=== PATIENT | male | born 1995 | race Caucasian/White ===

== ENCOUNTER 2016-06-12 14:02 | Observation (INO) | payer BC ==
[2016-06-12] MEDS ORDERED: NS 0.9% 1000 ML* 2,000 ML IV ONE (15:21)
[2016-06-12 16:22] LABS: Urine Bilirubin Negative (Negative); Urine Glucose Negative (Negative); Urine Nitrite Negative (Negative)
[2016-06-12 16:46] LABS: Hematocrit 41 % (42-52); Hemoglobin 13.3 g/dl (14.0-18.0); Mean Corpuscular HGB Conc 33 g/dl (31-36); Mean Corpuscular Hemoglobin 29 pg (27-31); Mean Corpuscular Volume 88 fL (80-94); Mean Platelet Volume 9 um3 (7.4-10.4); Red Blood Count 4.65 10^6/ul (4.0-5.4); Red Cell Distribution Width 14 % (10.5-15); White Blood Count 10.1 10^3/ul (3.5-10.8)
[2016-06-12 16:47] LABS: Add Diff/Slide Review? Manual Diff Added; Comments Flag Yes
[2016-06-12 17:01] LABS: Albumin 4.1 g/dL (3.2-5.2); BUN/Creatinine Ratio 11.2 (8-20); C Reactive Protein 103.91 mg/L (< 5.00); Calcium 8.9 mg/dL (8.6-10.3); EGFR African American 126.7 (>60); EGFR Non-African American 98.5 (>60); Globulin 3.4 g/dL (2-4); Total Bilirubin 0.6 mg/dL (0.2-1.0); Total Protein 7.5 g/dL (6.4-8.9)
[2016-06-12 17:10] LABS: Neutrophil % 47 % (38-83); Reactive Lymph % 11 % (0-6)
[2016-06-12 17:22] LABS: Mono Internal Control QC Line Present
[2016-06-12 17:23] LABS: Manual Entry Verification DOM0004
[2016-06-12] MEDS ORDERED: Benzocaine/Menthol LOZ* 1 LOZENGE PO PRN (17:52)
[2016-06-12] MEDS ORDERED: Ketorolac INJ* 30 MG/ML 1 ML VIAL IV PUSH PRN (17:52)
--- NOTE | 2016-06-12 18:29 | ED ---
Conrado Mcclelland Billy, scribed for Carlos Alberto Quezada MD on 06/12/16 at 1654 . Complex/Multi-Sys Presentation - HPI Summary HPI Summary: Patient is a 20 year-old male coming to [facility] for evaluation of abnormal liver labs. He was seen by his PCP in [place] and was diagnosed with mono 1.5 weeks ago. He reports nausea and vomiting several nights ago. He also reports intermittent abdominal pain and decreased PO intake. He states that he has had no bladder/bowel movements in the last few days. He reports sore throat and hoarse voice. - History Of Current Complaint Chief Complaint: EDNauseaVomitDiarrh Time Seen by Provider: 06/12/16 15:20 Hx Obtained From: Patient Onset/Duration: Gradual Onset, Lasting Days, Still Present Timing: Constant Severity Currently: Moderate Severity Initially: Moderate Aggravating Factor(s): nothing Alleviating Factor(s): nothing Associated Signs And Symptoms: Positive: Nausea, Vomiting, Decreased Oral Intake , Other - sore throat, hoarse voice, - Allergies/Home Medications Allergies/Adverse Reactions: Allergies Allergy/AdvReac Type Severity Reaction Status Date / Time Penicillins Allergy Hives Verified 06/11/15 23:00 Sulfa Antibiotics Allergy Hives Verified 06/11/15 23:00 Home Medications: Home Medications NK [No Home Medications Reported] 06/12/16 [History Confirmed 06/12/16] PMH/Surg Hx/FS Hx/Imm Hx Respiratory History: Denies: Hx Asthma Infectious Disease History: No Infectious Disease History: Denies: Traveled Outside the [place] in Last 30 Days - Family History Known Family History: Positive: Cardiac Disease - Social History Alcohol Use: None Substance Use Type: Reports: None Smoking Status (MU): Never Smoked Tobacco Review of Systems Positive: Sore Throat, Other - voice hoarseness Positive: Abdominal Pain, Vomiting, Nausea, Other - decreased PO All Other Systems Reviewed And Are Negative: Yes Physical Exam Triage Information Reviewed: Yes Vital Signs On Initial Exam: Initial Vitals Temp Pulse Resp BP Pulse Ox 99 F 116 16 113/72 97 06/12/16 14:58 06/12/16 14:58 06/12/16 14:58 06/12/16 14:58 06/12/16 14:58 Vital Signs Reviewed: Yes Appearance: Positive: Well-Appearing, No Pain Distress Skin: Positive: Warm, Skin Color Reflects Adequate Perfusion, Dry Head/Face: Positive: Normal Head/Face Inspection Eyes: Positive: EOMI, EN[place] ENT: Positive: Other - Tonsils 3+ touching midline; no palatine swelling; Neck: Positive: Other: - anterior cervical lymph nodes Respiratory/Lung Sounds: Positive: Clear to Auscultation, Breath Sounds Present Cardiovascular: Positive: Tachycardia Abdomen Description: Positive: Nontender, Soft Bowel Sounds: Positive: Present Musculoskeletal: Positive: Normal, Strength/ROM Intact Neurological: Positive: Normal, Sensory/Motor Intact, Alert, Oriented to Person Place, Time Psychiatric: Positive: Affect/Mood Appropriate Diagnostics - Vital Signs Vital Signs Temp Pulse Resp BP Pulse Ox 06/12/16 14:58 99 F 116 16 113/72 97 - Laboratory Lab Results: Lab Results 06/12/16 06/12/16 Range/Units 16:08 16:38 WBC 10.1 (3.5-10.8) 10^3/ul RBC 4.65 (4.0-5.4) 10^6/ul Hgb 13.3 L (14.0-18.0) g/dl Hct 41 L (42-52) % MCV 88 (80-94) fL MCH 29 (27-31) pg MCHC 33 (31-36) g/dl RDW 14 (10.5-15) % Plt Count 166 (150-450) 10^3/ul MPV 9 (7.4-10.4) um3 Absolute Neuts (auto) Pending Absolute Lymphs (auto) Pending Absolute Monos (auto) Pending Absolute Eos (auto) Pending Absolute Basos (auto) Pending Absolute Nucleated RBC Pending Neutrophils % Pending Normal RBC Morphology Pending Urine Color Yellow Urine Appearance Clear Urine pH 6.0 (5-9) Ur Specific [place] 1.016 (1.010-1.030) Urine Protein Negative (Negative) Urine Ketones Negative (Negative) Urine Blood Negative (Negative) Urine Nitrate Negative (Negative) Urine Bilirubin Negative (Negative) Urine Urobilinogen Negative (Negative) Ur Leukocyte Esterase Negative (Negative) Urine Glucose Negative (Negative) Monoscreen Pending Result Diagrams: 06/12/16 16:38 06/12/16 16:38 Lab Statement: Any lab studies that have been ordered have been reviewed, and results considered in the medical decision making process. Complex Multi-Symp Course/Dx Assessment/Plan: ADMIT HOSPITALIST STABLE. - Diagnoses Provider Diagnoses: Dehydration, Mononucleosis - Physician Notifications Discussed Care Of Patient With: Dr. Ramsey (hospitalist) @ [id number]: will see patient in the ED. Discharge - Discharge Plan Condition: Stable Disposition: ADMITTED TO [facility] documentation as recorded by the Conrado arias Billy accurately reflects the service I personally performed and the decisions made by me, Carlos Alberto Quezada MD.
[2016-06-12] MEDS ORDERED: Acetaminophen ADULT LIQ* 650 MG/20.3 ML UDC PO PRN (18:53)
[2016-06-12] MEDS ORDERED: Acetaminophen ADULT LIQ* 650 MG/20.3 ML UDC PO ONE (18:53)
[2016-06-12] MEDS: NS 0.9% 1000 ML* 1,000 ML IV SCH (20:02)
[2016-06-12] MEDS: Chlorhexidine MOUTHWASH 0.12%* 15 ML UDC SWISH SPIT SCH ×2 (20:03→22:10)
[2016-06-13] MEDS: Chlorhexidine MOUTHWASH 0.12%* 15 ML UDC SWISH SPIT SCH ×3 (01:20→09:37)
[2016-06-13 01:36] LABS: Hematocrit 35 % (42-52); Hemoglobin 11.7 g/dl (14.0-18.0); Mean Corpuscular HGB Conc 34 g/dl (31-36); Mean Corpuscular Hemoglobin 30 pg (27-31); Mean Corpuscular Volume 88 fL (80-94); Mean Platelet Volume 9 um3 (7.4-10.4); Red Blood Count 3.95 10^6/ul (4.0-5.4); Red Cell Distribution Width 14 % (10.5-15); White Blood Count 8.3 10^3/ul (3.5-10.8)
[2016-06-13 01:39] LABS: Add Diff/Slide Review? Slide Review Added; Comments Flag Yes
[2016-06-13 01:47] LABS: Albumin 3.4 g/dL (3.2-5.2); BUN/Creatinine Ratio 9.6 (8-20); Calcium 8.3 mg/dL (8.6-10.3); EGFR African American 118.3 (>60); Globulin 2.9 g/dL (2-4); Potassium 3.9 mmol/L (3.5-5.0); Total Bilirubin 0.5 mg/dL (0.2-1.0); Total Protein 6.3 g/dL (6.4-8.9)
[2016-06-13 02:10] LABS: Immature Granulocytes 4 % (0-9); Myelocytes % 1 % (0-1); Neutrophil % 34 % (38-83); RBC Morphology Normal (Normal); Reactive Lymph % 32 % (0-6)
--- NOTE | 2016-06-13 02:21 | HP ---
HISTORY AND PHYSICAL: * DATE OF ADMISSION: 06/12/16 ATTENDING PHYSICIAN: Dr. Nelson (reported dictated by Aristeo Leo NP). PRIMARY CARE PROVIDER: [place] [id number]/CPS #: [id number] [facility]
--- NOTE | 2016-06-13 02:21 | HP ---
ADMISSION HISTORY AND PHYSICAL: DATE OF ADMISSION: 06/12/16 ATTENDING PHYSICIAN: Dr. Nelson * (report dictated by Aristeo Leo, CHAPARRITA). PRIMARY CARE PROVIDER: Dr. Tuan Kay, [facility], [place], [place]. PRIMARY PROVIDER: [facility]. CHIEF COMPLAINT: Sent from [facility] for dehydration and secondary to mono. HISTORY OF PRESENT ILLNESS: Mr. Seay is a 20-year-old male with no significant past medical history who was diagnosed with mono approximately 10 days ago by his primary producer assistant when he was home on break. Mr. Seay reports that he returned to [facility] on Friday night, which was 3 nights ago, and still felt under the weather. He was seen and evaluated at the [facility] on Friday, Friday, and today where he was given IV fluids every day and yesterday was given a dose of IV steroids. Today on evaluation at the [facility], he was noted to be tachycardic with heart rate of 140 and was sent to [facility] for tachycardia and unable to keep up with fluid needs. On evaluation in the emergency department, the patient's labs are fairly unremarkable with noted transaminitis with AST of 115, ALT of 379. As well, he is noted to have C-reactive protein of 103.91. The patient reports his max temperature was 102.7 two days ago. He reports a sore throat with swollen lymph nodes, reports that he was tested twice for strep which were both negative. Reports when he was initially diagnosed he was put on a short course of steroids, which did initially help. Today, on evaluation the patient reports fever and chills. Reports overall he feels "terrible." Reports dizziness with ambulation. Denies shortness of breath, cough, or chest pain. The patient reports sore throat. He reports that he has not had any oral intake, whether it be food or fluids for 24 hours. The patient reports generalized weakness. No diarrhea, abdominal pain, or constipation. Denies ear pain. Hospitalist will meet the patient for dehydration. PAST MEDICAL HISTORY: ADHD. MEDICATIONS: 1. Adderall 10 mg daily. 2. Adderall XR 30 mg? 3. Ibuprofen 400 mg q.4-6 hours p.r.n. ALLERGIES: PENICILLIN and SULFA ANTIBIOTICS. FAMILY HISTORY: Reviewed and noncontributory. SOCIAL HISTORY: Denies tobacco abuse. Occasional alcohol use. Denies recreational drug use. 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 He lives in a dorm. His father is Smith Seay. Lives in [place], [place]. Nidhi and Smith Seay are the healthcare proxies. REVIEW OF SYSTEMS: A 14-point review of systems was performed. All the pertinent positives and negatives are mentioned in the history of present illness. All the remaining systems are negative. PHYSICAL EXAMINATION APPEARANCE: A 20-year-old male lying in the emergency department stretcher bundled in blankets, appearing moderately ill. Alert and oriented x3. VITAL SIGNS: Temperature 99, heart rate 113, respirations 16, O2 sat 99% on room air, blood pressure 122/69. HEENT: Head is normocephalic, atraumatic. Pupils are equal and reactive to light. Dry mucous membranes. Oropharynx appears to have mild erythema. No noted exudate. Unable to visualize tonsils. Noted nasal congestion. NECK: Bilateral cervical lymphadenopathy. Tender to palpation. Good aeration throughout. No accessory muscle use. RESPIRATORY: Lungs are clear to auscultation bilaterally. Good aeration throughout. CARDIAC: S1, S2. Tachycardia noted. No lower extremity edema noted. 2+ DP pulses bilaterally. ABDOMEN: Soft, nondistended. Normal bowel sounds x4. Right upper quadrant tenderness with deep palpation. No guarding, no hepatosplenomegaly is noted. MUSCULOSKELETAL: No clubbing or cyanosis noted. No abnormalities. Full range of motion in all extremities. Strength is 5/5 throughout. SKIN: No rashes, lesions, or open wounds noted. NEUROLOGIC: Cranial nerves II through XII are intact. PSYCH: Alert and oriented x3. Appropriate to situation. LABORATORY DATA AND DIAGNOSTIC STUDIES: Sodium 137, potassium 4.0, chloride 101, carbon dioxide 31, anion gap 5, BUN 11, creatinine 0.98, glucose 85, calcium 8.9, total bilirubin 0.60, AST 115, ALT 379, alkaline phosphatase 91, C- reactive protein 103.91, total protein 7.5, albumin 4.1, lipase 50, INR 1.25. WBC is 10.1, RBC 4.65, Hgb 13.3, HCT 41, MCV 88, MCH 29, MCHC 33, RDW 14, platelet count 166. Urinalysis negative. Price pending. Strep pending. Influenza pending. ASSESSMENT AND PLAN: Mr. Seay is a 20-year-old male with no significant past medical history who was diagnosed with mono approximately 10 days ago who was sent to [facility] for dehydration with tachycardia, unable to keep up on fluid needs. The patient was admitted to hospitalist service. 1. Price. The patient will be admitted on observation status, as even though he does not reflect dehydration on his labs, it is apparent with him being evaluated at the [facility] for 3 days and requiring fluids with noted tachycardia that he will be admitted for IV fluids. Most likely discharge home tomorrow. Symptomatic treatment with pain medication. Obtain blood cultures. 2. Transaminitis secondary to mono. Check LFTs in the a.m. 3. Normocytic anemia. Suspect secondary to hemodilution secondary to IV fluids. 4. DVT prophylaxis. Encourage low risk, encourage ambulation. 5. Code status. Full code. His mother is Nidhi Seay, number is [phone]. 6. Hospital status. Observation. TIME SPENT: Approximately 60 minutes were spent on this admission. This case was discussed with attending physician, Dr. Nelson, who agrees with the plan of care. ARISTEO LEO, CHAPARRITA [id number]/[facility] #: [id number] [place]
[2016-06-13] MEDS: NS 0.9% 1000 ML* 1,000 ML IV SCH (02:44)
--- NOTE | 2016-06-13 11:32 | DCNOTE ---
Subjective Date of Service: 06/13/16 Interval History: patient reports he feels a little better today but still feels "not that great" - biggest c/o is sore throat and nasal congestion. No fevers or chills. has been drinking fluids but continues to have little appetite. no abdominal pain. No N/V/D. Dad at bedside and both the patient and dad are ready for DC. The dad plans on taking him to a hotel room and see if he feels well enough to stay at school or will take him back home. Objective Active Medications: Acetaminophen (Tylenol Adult Liq*) 650 mg PO Q6H PRN PRN Reason: FEVER Last Admin: 06/13/16 01:20 Dose: 650 mg Chlorhexidine Gluconate (Peridex Mouth Wash 0.12%*) 15 ml SWISH SPIT Q4HR KARLI Last Admin: 06/13/16 09:37 Dose: 15 ml Sodium Chloride (Ns 0.9% 1000 Ml*) 1,000 mls @ 150 mls/hr IV PER RATE KARLI Stop: 06/14/16 00:39 Last Admin: 06/13/16 02:44 Dose: 150 mls/hr Ketorolac Tromethamine (Toradol Inj*) 30 mg IV PUSH Q6H PRN PRN Reason: PAIN Last Admin: 06/12/16 19:03 Dose: 30 mg Throat Lozenges (Chloraseptic Betito*) 1 betito PO Q6H PRN PRN Reason: SORE THROAT Vital Signs 06/12/16 06/12/16 06/12/16 19:50 20:00 22:00 Temperature 100.7 F 99.4 F Pulse Rate 109 109 Respiratory 16 18 Rate Blood Pressure 115/50 115/50 (mmHg) O2 Sat by Pulse 98 98 Oximetry 06/12/16 06/12/16 06/13/16 22:05 23:13 00:01 Temperature 97.6 F Pulse Rate 109 Respiratory 18 16 Rate Blood Pressure 117/51 (mmHg) O2 Sat by Pulse 99 Oximetry 06/13/16 06/13/16 06/13/16 01:00 02:40 03:25 Temperature 100.7 F 98.5 F Pulse Rate 109 Respiratory 16 Rate Blood Pressure 128/70 (mmHg) O2 Sat by Pulse 97 Oximetry 06/13/16 06/13/16 06/13/16 06:09 07:16 07:54 Temperature 100.3 F 98.2 F Pulse Rate 111 Respiratory 18 16 Rate Blood Pressure 131/70 (mmHg) O2 Sat by Pulse 97 Oximetry Oxygen Devices in Use Now: None Appearance: 20 yo male A+O x3 appears to have a mild-mod illness. Eyes: No Scleral Icterus, PERRLA Ears/Nose/Mouth/Throat: NL Teeth, Lips, Gums, Clear Oropharnyx, Mucous Membranes Moist Neck: NL Appearance and Movements; NL JVP Respiratory: Symmetrical Chest Expansion and Respiratory Effort, Clear to Auscultation Cardiovascular: NL Sounds; No Murmurs; No JVD, RRR, No Edema Abdominal: NL Sounds; No Tenderness; No Distention Lymphatic: No Cervical Adenopathy, - - b/l Extremities: No Edema, No Clubbing, Cyanosis Skin: No Rash or Ulcers, No Nodules or Sclerosis Neurological: Alert and Oriented x 3, NL Sensation, NL Gait, NL Muscle Strength and Tone Lines/Tubes/Other Access: Clean, Dry and Intact Peripheral IV Nutrition: Taking PO's Result Diagrams: 06/13/16 01:04 06/13/16 01:04 Additional Lab and Data: Lab Results 06/12/16 06/12/16 Range/Units 16:08 16:38 WBC 10.1 (3.5-10.8) 10^3/ul RBC 4.65 (4.0-5.4) 10^6/ul Hgb 13.3 L (14.0-18.0) g/dl Hct 41 L (42-52) % MCV 88 (80-94) fL MCH 29 (27-31) pg MCHC 33 (31-36) g/dl RDW 14 (10.5-15) % Plt Count 166 (150-450) 10^3/ul MPV 9 (7.4-10.4) um3 Absolute Neuts (auto) Pending Absolute Lymphs (auto) Pending Absolute Monos (auto) Pending Absolute Eos (auto) Pending Absolute Basos (auto) Pending Absolute Nucleated RBC Pending Neutrophils % Pending Normal RBC Morphology Pending Urine Color Yellow Urine Appearance Clear Urine pH 6.0 (5-9) Ur Specific [place] 1.016 (1.010-1.030) Urine Protein Negative (Negative) Urine Ketones Negative (Negative) Urine Blood Negative (Negative) Urine Nitrate Negative (Negative) Urine Bilirubin Negative (Negative) Urine Urobilinogen Negative (Negative) Ur Leukocyte Esterase Negative (Negative) Urine Glucose Negative (Negative) Monoscreen Pending Microbiology and Other Data: Microbiology 06/13/16 01:20 Influenza Types A,B Antigen (DENISSE) - Final Nasopharyngeal Specimen received for Influenza A/B Molecular testing 06/13/16 01:20 Group A Streptococcus Rapid Screen - Final Throat Specimen received for Rapid Strep A Molecular testing Assess/Plan/Problems-Billing Assessment: 20 [facility] [facility] with acute pharyngitis secondary to Sp[place] presents to the ED 06/12 sent from [facility] for 3 consecutive visits and not being able to keep up on fluids, noted to be tachycardic. - Patient Problems (1) Pharyngitis due to infectious mononucleosis Comment: -slight improvement today but continues to have significant sore through limiting eating. plan for DC with dad. - +mono, negative Influenza A/B - gargle QID - pain management (2) Transaminitis Comment: - trending down. recheck in 1 week. (3) DVT prophylaxis Comment: encourage ambulation Status and Disposition: OBV. Plan for DC home with dad
[2016-06-13 11:59] VITALS: BP 113/90
--- NOTE | 2016-06-13 20:16 | DS ---
DISCHARGE SUMMARY: DATE OF ADMISSION: 06/12/16 DATE OF DISCHARGE: 06/13/16 ATTENDING PHYSICIAN: Dr. Nelson* (report dictated by Aristeo Leo, CHAPARRITA) PRIMARY CARE PROVIDER: Dr. Tuan Kay, [facility], [place], [place]. PRIMARY CARE PROVIDER: [facility]. PRIMARY DIAGNOSES: 1. Acute pharyngitis secondary to mono. 2. Transaminitis. SECONDARY DIAGNOSIS: Attention deficit hyperactivity disorder. DISCHARGE MEDICATIONS: 1. Adderall 10 mg p.o. daily. On hold until the patient feels better. 2. Adderall XR 30 mg daily. On hold until the patient feels better. 3. Chlorhexidine mouthwash 0.12% 50 mL swish and spit q.4 hours. 4. Ibuprofen 400 mg p.o. q.6 hours p.r.n. 5. Prednisone 20 mg p.o. daily x5 days. 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 The patient was recently diagnosed with mono and had secondary symptoms of acute pharyngitis. Due to the patient's severe sore throat, the patient was not able to keep up on his fluid intake and was seen in the [facility] for the past 3 days; each day he was given IV fluids. Yesterday, the patient was noted to be tachycardic with heart rate in the 140s and temperature of 102 and was sent to [facility] for further evaluation. The patient was admitted to the hospitalist service and monitored on the medical floor. His labs from admission were unimpressive; however, the patient was admitted for dehydration, unable to keep up on his fluid status. In the emergency department, his heart rate was noted to be 116. He has remained hemodynamically stable. He has had no leukocytosis. He did test positive for mono, negative for influenza A and B. He was noted to have CRP of 103.91. He is noted to have elevated liver enzymes on admission, his AST was 115 and an ALT of 379, both are trending down today on recheck. The patient reports he feels slightly better today. His dad is at the bedside. Plan is to discharge the patient in care of his father with plan to stay in a hotel for a couple of days and if the patient still continues to not feel well, the father will take the patient home for a long weekend. The patient currently reports poor appetite, but has been taking fluids more than he had been for the past several days. Worsening signs and symptoms were discussed with the patient, when to return to the emergency department. Plan for symptomatic treatment. Encourage rest and fluids. DISCHARGE PLAN: 1. Discharge home in care of dad. 2. Follow up with [facility] in 2 days. 3. Encourage the patient to gargle every 4 hours with chlorhexidine wash and/ or warm salt water. 4. The patient was instructed no contact sports until cleared by primary care provider or IC provider. 5. Check lab, CBC and CMP in 1 week. CONDITION AT DISCHARGE: Stable. TIME SPENT: Approximately 60 minutes was spent on this discharge. ARISTEO LEO, CHAPARRITA [id number]/CPS #: [id number] [place]
== END 2016-06-13 12:15 | disposition home or self-care (01) ==
LOC: ED 14:02 → MED 17:46 → UNDODISOB 06-13 13:01
PROVIDERS: ADMIT Internal Medicine; ATTEND Internal Medicine
DX: B27.99 Infectious mononucleosis, unspecified with other complication (principal); J02.9 Acute pharyngitis, unspecified; E86.0 Dehydration; R74.0 Nonspecific elevation of levels of transaminase and lactic acid dehydrogenase [LDH]; D64.89 Other specified anemias
CPT/HCPCS: 36415; 80053; 81003; 83690; 85025; 85610; 85730; 86140; 86308; 87040; 87502; 87651; 96360; 99283; A9270-GY; G0378; J1885

== ENCOUNTER 2016-09-17 18:15 | Emergency (ER) | payer BC ==
[2016-09-17] MEDS: NS 0.9% 1000 ML* 2,000 ML IV ONE ×2 (19:09→20:58)
[2016-09-17 19:24] LABS: Hematocrit 39 % (42-52); Hemoglobin 13.3 g/dl (14.0-18.0); Mean Corpuscular HGB Conc 34 g/dl (31-36); Mean Corpuscular Hemoglobin 29 pg (27-31); Mean Corpuscular Volume 85 fL (80-94); Mean Platelet Volume 9 um3 (7.4-10.4); Red Blood Count 4.56 10^6/ul (4.0-5.4); Red Cell Distribution Width 13 % (10.5-15); White Blood Count 18.9 10^3/ul (3.5-10.8)
[2016-09-17 19:31] LABS: Add Diff/Slide Review? Slide Review Added; Comments Flag Yes
[2016-09-17 19:39] LABS: Albumin 4.3 g/dL (3.2-5.2); BUN/Creatinine Ratio 9.8 (8-20); Calcium 8.9 mg/dL (8.6-10.3); EGFR African American 119.7 (>60); EGFR Non-African American 93.1 (>60); Globulin 2.6 g/dL (2-4); Potassium 3.7 mmol/L (3.5-5.0); Total Protein 6.9 g/dL (6.4-8.9)
[2016-09-17] MEDS ORDERED: Dexamethasone IV* 4 MG/ML 1 ML (4 MG) IV SLOW PU ONE (19:50)
[2016-09-17] MEDS ORDERED: Ketorolac INJ* 30 MG/ML 1 ML VIAL IV PUSH ONE (19:51)
[2016-09-17] MEDS ORDERED: Iohexol 300* (CONTRAST) 10 ML SDV IV ONE (19:57)
--- NOTE | 2016-09-17 20:20 | RAD ---
HISTORY: Sore throat, tonsillar swelling COMPARISONS: None TECHNIQUE: Multiple contiguous axial CT scans were obtained of the neck after the administration of nonionic intravenous contrast, with coronal and sagittal multiplanar reformations. FINDINGS: Evaluation limited by suboptimal contrast opacification. Evaluation is also limited by patient swallowing motion artifact. BRAIN AND ORBITS: The visualized brain and orbits are normal. PARANASAL SINUSES: The visualized paranasal sinuses are clear. SALIVARY GLANDS: The parotid glands, submandibular glands, sublingual glands are normal. NASAL CAVITY/NASOPHARYNX: There is prominence of the adenoidal tissue. ORAL CAVITY/OROPHARYNX: The oral cavity is obscured by streak artifact from dental amalgam. There is prominence of the palatine tonsils.. LARYNGEAL APPARATUS/HYPOPHARYNX: Evaluation is limited by patient swallowing motion artifact. The laryngeal apparatus is grossly normal UPPER AIRWAY/UPPER ESOPHAGUS: The visualized upper airway and esophagus are normal. LUNG APICES: The lung apices are clear. THYROID GLAND: The thyroid gland is normal. LYMPH NODES: There are enlarged level 2 lymph nodes bilaterally measuring up to 2 cm in short axis. VASCULATURE: The vasculature is unremarkable. BONES AND SOFT TISSUES: No bone or soft tissue abnormalities are noted. OTHER: None. IMPRESSION: 1. LIMITED STUDY. 2. PROMINENCE OF THE ADENOIDS AND PALATINE TONSILS, WITH UPPER CERVICAL LYMPHADENOPATHY. THERE IS NO LOCULATED THE FLUID COLLECTION TO SUGGEST ABSCESS..
[2016-09-17 20:24] LABS: Mono Internal Control QC Line Present
--- NOTE | 2016-09-17 21:11 | ED ---
Throat Pain/Nasal Congestion - HPI Summary HPI Summary: 21M presents with fever and sore throat since last night. He states this is similar to when he had mono in the past. He was scheduled for tonsillectomy on Friday due to frequent strep infections. He took ibuprofen and Tylenol for his fever. He was seen [facility] and they gave him fluid prior to transfer. He denies any stiff neck. He admits to headache, nasal congestion and sore throat. He states he is still able to swallow and eat. He denies any abdominal pain, n/v/d. He was hospitalized for mono a couple months ago. He states he does not fell dehydrated at this time. he has an occasionally dry cough. He denies nay chest pain or SOB. <Tatiana Mason - Last Filed: 09/18/16 15:36> <Radha Harding - Last Filed: 09/21/16 09:15> - History of Current Complaint Chief Complaint: EDGeneral Time Seen by Provider: 09/17/16 18:50 - Allergies/Home Medications Allergies/Adverse Reactions: Allergies Allergy/AdvReac Type Severity Reaction Status Date / Time Penicillins Allergy Hives Verified 06/11/15 23:00 Sulfa Antibiotics Allergy Hives Verified 06/11/15 23:00 PMH/Surg Hx/FS Hx/Imm Hx Cardiovascular History: Denies: Hx Hypertension Respiratory History: Denies: Hx Asthma Infectious Disease History: No Infectious Disease History: Denies: Traveled Outside the [place] in Last 30 Days - Family History Known Family History: Positive: Cardiac Disease - Social History Alcohol Use: Occasionally Substance Use Type: Reports: None Smoking Status (MU): Never Smoked Tobacco <Tatiana Mason - Last Filed: 09/18/16 15:36> Review of Systems Positive: Fever Positive: Sore Throat, Nasal Discharge Negative: Chest Pain Positive: Cough. Negative: Shortness Of Breath Negative: Abdominal Pain, Vomiting, Diarrhea, Nausea All Other Systems Reviewed And Are Negative: Yes <Tatiana Mason - Last Filed: 09/18/16 15:36> Physical Exam Triage Information Reviewed: Yes Vital Signs On Initial Exam: Initial Vitals Temp Pulse Resp BP Pulse Ox 101.2 F 130 19 156/80 100 09/17/16 18:22 09/17/16 18:22 09/17/16 18:22 09/17/16 18:22 09/17/16 18:22 Vital Signs Reviewed: Yes Appearance: Positive: Ill-Appearing Skin: Positive: Warm, Dry Head/Face: Positive: Normal Head/Face Inspection Eyes: Positive: Normal, Conjunctiva Clear ENT: Positive: Pharyngeal erythema, Tonsillar swelling, Other - uvula midline, tonsils +4, managing secretions well. Negative: Tonsillar exudate, Trismus, Muffled/hoarse voice Neck: Positive: Supple, Nontender, No Lymphadenopathy Respiratory/Lung Sounds: Positive: Clear to Auscultation, Breath Sounds Present Cardiovascular: Positive: Normal, RRR - [place] Coma Scale Coma Scale Total: 15 <Tatiana Mason - Last Filed: 09/18/16 15:36> Vital Signs On Initial Exam: Initial Vitals Temp Pulse Resp BP Pulse Ox 101.2 F 130 19 156/80 100 09/17/16 18:22 09/17/16 18:22 09/17/16 18:22 09/17/16 18:22 09/17/16 18:22 <Radha Harding - Last Filed: 09/21/16 09:15> Diagnostics - Vital Signs Vital Signs Temp Pulse Resp BP Pulse Ox 09/17/16 20:39 100.9 F 122 18 109/60 96 09/17/16 18:40 101.2 F 130 19 156/80 100 09/17/16 18:22 101.2 F 130 19 156/80 100 - Laboratory Lab Results: Lab Results 09/17/16 09/17/16 09/17/16 Range/Units 19:10 19:10 19:10 WBC 18.9 H (3.5-10.8) 10^3/ul RBC 4.56 (4.0-5.4) 10^6/ul Hgb 13.3 L (14.0-18.0) g/dl Hct 39 L (42-52) % MCV 85 (80-94) fL MCH 29 (27-31) pg MCHC 34 (31-36) g/dl RDW 13 (10.5-15) % Plt Count 160 (150-450) 10^3/ul MPV 9 (7.4-10.4) um3 Neut % (Auto) 86.4 H (38-83) % Lymph % (Auto) 4.6 L (25-47) % Johnson % (Auto) 8.9 (1-9) % Eos % (Auto) 0 (0-6) % Baso % (Auto) 0.1 (0-2) % Absolute Neuts (auto) 16.4 H (1.5-7.7) 10^3/ul Absolute Lymphs (auto) 0.9 L (1.0-4.8) 10^3/ul Absolute Monos (auto) 1.7 H (0-0.8) 10^3/ul Absolute Eos (auto) 0 (0-0.6) 10^3/ul Absolute Basos (auto) 0 (0-0.2) 10^3/ul Absolute Nucleated RBC 0 10^3/ul Nucleated RBC % 0 Sodium 136 (133-145) mmol/L Potassium 3.7 (3.5-5.0) mmol/L Chloride 101 (101-111) mmol/L Carbon Dioxide 29 (22-32) mmol/L Anion Gap 6 (2-11) mmol/L BUN 10 (6-24) mg/dL Creatinine 1.02 (0.67-1.17) mg/dL Est GFR ( Amer) 119.7 (>60) Est GFR (Non-Af Amer) 93.1 (>60) BUN/Creatinine Ratio 9.8 (8-20) Glucose 96 (70-100) mg/dL Lactic Acid 0.7 (0.5-2.0) mmol/L Calcium 8.9 (8.6-10.3) mg/dL Total Bilirubin 1.00 (0.2-1.0) mg/dL AST 16 (13-39) U/L ALT 16 (7-52) U/L Alkaline Phosphatase 42 (34-104) U/L Total Protein 6.9 (6.4-8.9) g/dL Albumin 4.3 (3.2-5.2) g/dL Globulin 2.6 (2-4) g/dL Albumin/Globulin Ratio 1.7 (1-3) Monoscreen Positive H (Negative) Group A Strep Rapid (Negative) 09/17/16 Range/Units 19:18 WBC (3.5-10.8) 10^3/ul RBC (4.0-5.4) 10^6/ul Hgb (14.0-18.0) g/dl Hct (42-52) % MCV (80-94) fL MCH (27-31) pg MCHC (31-36) g/dl RDW (10.5-15) % Plt Count (150-450) 10^3/ul MPV (7.4-10.4) um3 Neut % (Auto) (38-83) % Lymph % (Auto) (25-47) % Johnson % (Auto) (1-9) % Eos % (Auto) (0-6) % Baso % (Auto) (0-2) % Absolute Neuts (auto) (1.5-7.7) 10^3/ul Absolute Lymphs (auto) (1.0-4.8) 10^3/ul Absolute Monos (auto) (0-0.8) 10^3/ul Absolute Eos (auto) (0-0.6) 10^3/ul Absolute Basos (auto) (0-0.2) 10^3/ul Absolute Nucleated RBC 10^3/ul Nucleated RBC % Sodium (133-145) mmol/L Potassium (3.5-5.0) mmol/L Chloride (101-111) mmol/L Carbon Dioxide (22-32) mmol/L Anion Gap (2-11) mmol/L BUN (6-24) mg/dL Creatinine (0.67-1.17) mg/dL Est GFR ( Amer) (>60) Est GFR (Non-Af Amer) (>60) BUN/Creatinine Ratio (8-20) Glucose (70-100) mg/dL Lactic Acid (0.5-2.0) mmol/L Calcium (8.6-10.3) mg/dL Total Bilirubin (0.2-1.0) mg/dL AST (13-39) U/L ALT (7-52) U/L Alkaline Phosphatase (34-104) U/L Total Protein (6.4-8.9) g/dL Albumin (3.2-5.2) g/dL Globulin (2-4) g/dL Albumin/Globulin Ratio (1-3) Monoscreen (Negative) Group A Strep Rapid Negative (Negative) Result Diagrams: 09/17/16 19:10 09/17/16 19:10 Lab Statement: Any lab studies that have been ordered have been reviewed, and results considered in the medical decision making process. - CT neck CT Interpretation: Positive (See Comments) - MPRESSION: 1. LIMITED STUDY. 2. PROMINENCE OF THE ADENOIDS AND PALATINE TONSILS, WITH UPPER CERVICAL LYMPHADENOPATHY. THERE IS NO LOCULATED THE FLUID COLLECTION TO SUGGEST ABSCESS.. CT Interpretation Completed By: Radiologist <Tatiana Mason - Last Filed: 09/18/16 15:36> - Vital Signs Vital Signs Temp Pulse Resp BP Pulse Ox 09/17/16 21:41 98.7 F 70 16 106/60 09/17/16 20:39 100.9 F 122 18 109/60 96 09/17/16 18:40 101.2 F 130 19 156/80 100 09/17/16 18:22 101.2 F 130 19 156/80 100 - Laboratory Lab Results: Lab Results 09/17/16 09/17/16 09/17/16 Range/Units 19:10 19:10 19:10 WBC 18.9 H (3.5-10.8) 10^3/ul RBC 4.56 (4.0-5.4) 10^6/ul Hgb 13.3 L (14.0-18.0) g/dl Hct 39 L (42-52) % MCV 85 (80-94) fL MCH 29 (27-31) pg MCHC 34 (31-36) g/dl RDW 13 (10.5-15) % Plt Count 160 (150-450) 10^3/ul MPV 9 (7.4-10.4) um3 Neut % (Auto) 86.4 H (38-83) % Lymph % (Auto) 4.6 L (25-47) % Johnson % (Auto) 8.9 (1-9) % Eos % (Auto) 0 (0-6) % Baso % (Auto) 0.1 (0-2) % Absolute Neuts (auto) 16.4 H (1.5-7.7) 10^3/ul Absolute Lymphs (auto) 0.9 L (1.0-4.8) 10^3/ul Absolute Monos (auto) 1.7 H (0-0.8) 10^3/ul Absolute Eos (auto) 0 (0-0.6) 10^3/ul Absolute Basos (auto) 0 (0-0.2) 10^3/ul Absolute Nucleated RBC 0 10^3/ul Nucleated RBC % 0 Sodium 136 (133-145) mmol/L Potassium 3.7 (3.5-5.0) mmol/L Chloride 101 (101-111) mmol/L Carbon Dioxide 29 (22-32) mmol/L Anion Gap 6 (2-11) mmol/L BUN 10 (6-24) mg/dL Creatinine 1.02 (0.67-1.17) mg/dL Est GFR ( Amer) 119.7 (>60) Est GFR (Non-Af Amer) 93.1 (>60) BUN/Creatinine Ratio 9.8 (8-20) Glucose 96 (70-100) mg/dL Lactic Acid 0.7 (0.5-2.0) mmol/L Calcium 8.9 (8.6-10.3) mg/dL Total Bilirubin 1.00 (0.2-1.0) mg/dL AST 16 (13-39) U/L ALT 16 (7-52) U/L Alkaline Phosphatase 42 (34-104) U/L Total Protein 6.9 (6.4-8.9) g/dL Albumin 4.3 (3.2-5.2) g/dL Globulin 2.6 (2-4) g/dL Albumin/Globulin Ratio 1.7 (1-3) Monoscreen Positive H (Negative) Group A Strep Rapid (Negative) 09/17/16 Range/Units 19:18 WBC (3.5-10.8) 10^3/ul RBC (4.0-5.4) 10^6/ul Hgb (14.0-18.0) g/dl Hct (42-52) % MCV (80-94) fL MCH (27-31) pg MCHC (31-36) g/dl RDW (10.5-15) % Plt Count (150-450) 10^3/ul MPV (7.4-10.4) um3 Neut % (Auto) (38-83) % Lymph % (Auto) (25-47) % Johnson % (Auto) (1-9) % Eos % (Auto) (0-6) % Baso % (Auto) (0-2) % Absolute Neuts (auto) (1.5-7.7) 10^3/ul Absolute Lymphs (auto) (1.0-4.8) 10^3/ul Absolute Monos (auto) (0-0.8) 10^3/ul Absolute Eos (auto) (0-0.6) 10^3/ul Absolute Basos (auto) (0-0.2) 10^3/ul Absolute Nucleated RBC 10^3/ul Nucleated RBC % Sodium (133-145) mmol/L Potassium (3.5-5.0) mmol/L Chloride (101-111) mmol/L Carbon Dioxide (22-32) mmol/L Anion Gap (2-11) mmol/L BUN (6-24) mg/dL Creatinine (0.67-1.17) mg/dL Est GFR ( Amer) (>60) Est GFR (Non-Af Amer) (>60) BUN/Creatinine Ratio (8-20) Glucose (70-100) mg/dL Lactic Acid (0.5-2.0) mmol/L Calcium (8.6-10.3) mg/dL Total Bilirubin (0.2-1.0) mg/dL AST (13-39) U/L ALT (7-52) U/L Alkaline Phosphatase (34-104) U/L Total Protein (6.4-8.9) g/dL Albumin (3.2-5.2) g/dL Globulin (2-4) g/dL Albumin/Globulin Ratio (1-3) Monoscreen (Negative) Group A Strep Rapid Negative (Negative) Result Diagrams: 09/17/16 19:10 09/17/16 19:10 Lab Statement: Any lab studies that have been ordered have been reviewed, and results considered in the medical decision making process. <Radha Harding - Last Filed: 09/21/16 09:15> Re-Evaluation - Re-Evaluation First Eval Change: Improved Comment: after dose of decadron patient states throat feels better <Tatiana Mason - Last Filed: 09/18/16 15:36> EENT Course/Dx - Course Course Of Treatment: 21M presents with fever, lethargy, and sore throat for a day. states feels like how had mono in past that was hospitalized for. has large tonsils that suppose to get out this weekend. has given 2L fluid before arrival. able to eat food this time. on exam uvula midline, soft palate rise symmetrically, tonsil +3, gave a liter and a half of fluid and HR 118 and toradol and decadon and patient states pain improved. CT no abscess. mono positive. patient able to tolerated food well. discussed with patient and mom and decided would like to be d/c home and will return if gets worst. - Differential Diagnoses Differential Diagnoses: Pharyngitis, Other - mono, strept, peristonsillar abscess, retrophyargneal abscess <Tatiana Mason - Last Filed: 09/18/16 15:36> <Radha Harding - Last Filed: 09/21/16 09:15> - Diagnoses Provider Diagnoses: Acute pharyngitis due to infectious mononucleosis Discharge <Tatiana Mason - Last Filed: 09/18/16 15:36> <Radha Harding - Last Filed: 09/21/16 09:15> - Discharge Plan Condition: Stable Disposition: HOME Prescriptions: Dexamethasone TAB* [Decadron TAB*] 6 mg PO DAILY #4 tab Patient Education Materials: Mononucleosis (ED) Referrals: No Primary Care Phys,NOPCP [Primary Care Provider] - Additional Instructions: Take steroid once a day starting tomorrow Drink fluids as tolerated Alternate Tylenol and ibuprofen every 6 hours Return to ED if unable to drink anything, inability to swallow, difficulty breathing, or any new or worsening symptoms Attestations User Type: Provider - I was available for consult. This patient was seen by the advanced practice provider. The patient was not presented to, seen by, or examined by me.-Starla <Radha Harding - Last Filed: 09/21/16 09:15>
[2016-09-17 21:43] VITALS: BP 106/60
== END 2016-09-17 21:41 | disposition home or self-care (01) ==
LOC: ED 18:15
DX: B27.90 Infectious mononucleosis, unspecified without complication (principal)
CPT/HCPCS: 36415; 70491; 80053; 83605; 85025; 86308; 87040; 87651; 96361; 96374; 96375; 99283; J1100; J1885; Q9967

== ENCOUNTER 2017-01-09 02:56 | Emergency (ER) | payer BC ==
[2017-01-09] MEDS ORDERED: Morphine INJ* 4 MG/ML 1 ML SYRINGE SUBCUT ONE (03:54)
--- NOTE | 2017-01-09 04:12 | ED ---
Charo Mcclelland Thomas, scribed for Catarino Perla MD on 01/09/17 at 0349 . Laceration/Wound HPI - HPI Summary HPI Summary: The pt is a 21 y/o M presenting to the ED c/o a laceration to his R big toe s/p tripping on a curb shortly prior to arrival. He reports that he is UTD on his tetanus vaccination. The pt rates the pain 8/10. The pain is aggravated by palpation and alleviated by nothing. 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 Pt denies uncontrolled bleeding to the laceration. The patient has no other complaints at this time. PMHx: GERD, ADD. PSHx: none. SHx: no smoking, occasional alcohol use, no illicit drug use. - History of Current Complaint Stated Complaint: ANKLE INJURY Time Seen by Provider: 01/09/17 03:04 Hx Obtained From: Patient, Family/Wind Turbine Technician - girlfriend in room Onset/Duration: Sudden Onset, Lasting Hours, Still Present Aggravating: Movement Alleviating: Nothing Current Severity: Severe Pain Intensity: 8 Pain Scale Used: 0-10 Numeric Associated Signs & Symptoms: Negative - Allergy/Home Medications Allergies/Adverse Reactions: Allergies Allergy/AdvReac Type Severity Reaction Status Date / Time Clindamycin Allergy Hives Verified 01/09/17 03:04 Penicillins Allergy Hives Verified 01/09/17 03:04 Sulfa Antibiotics Allergy Hives Verified 01/09/17 03:04 PMH/Surg Hx/FS Hx/Imm Hx Previously Healthy: No Cardiovascular History: Denies: Hx Hypertension Respiratory History: Denies: Hx Asthma GI History: Reports: Hx Gastroesophageal Reflux Disease Psychiatric History: Reports: Hx Attention Deficit Hyperactivity Disorder - Surgical History Surgery Procedure, Year, and Place: None Infectious Disease History: No Infectious Disease History: Denies: Traveled Outside the [place] in Last 30 Days - Family History Known Family History: Positive: Cardiac Disease - Social History Alcohol Use: Occasionally Substance Use Type: Reports: None Smoking Status (MU): Never Smoked Tobacco Review of Systems Negative: Fever Negative: Other - NEG: uncontrolled bleeding to laceration Positive: Other - POS: laceration to R big toe All Other Systems Reviewed And Are Negative: Yes Physical Exam Triage Information Reviewed: Yes Vital Signs On Initial Exam: Initial Vitals Temp Pulse Resp BP Pulse Ox 98.4 F 101 16 132/76 98 01/09/17 03:09 01/09/17 03:09 01/09/17 03:09 01/09/17 03:09 01/09/17 03:09 Vital Signs Reviewed: Yes Appearance: Positive: Well-Appearing, Pain Distress - mild Skin: Positive: Warm Head/Face: Positive: Normal Head/Face Inspection ENT: Positive: Hearing grossly normal Respiratory/Lung Sounds: Positive: Breath Sounds Present Musculoskeletal: Positive: Other - rt great toe with skin avulsion at tip Neurological: Positive: Alert, Oriented to Person Place, Time, Normal Gait Diagnostics - Vital Signs Vital Signs Temp Pulse Resp BP Pulse Ox 01/09/17 03:09 98.4 F 101 16 132/76 98 - Laboratory Lab Statement: Any lab studies that have been ordered have been reviewed, and results considered in the medical decision making process. - Radiology XR Toe Xray Interpretation: No Acute Changes - No Fx Radiology Interpretation Completed By: ED Physician Laceration Repair Course/Dx - Course Assessment/Plan: The pt is a 21 y/o M presenting to the ED c/o a laceration to his R big toe s/p tripping on a curb shortly prior to arrival. He reports that he is UTD on his tetanus vaccination. The pt rates the pain 8/10. The pain is aggravated by palpation and alleviated by nothing. 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 Pt denies uncontrolled bleeding to the laceration. The patient has no other complaints at this time. PMHx: GERD, ADD. PSHx: none. SHx: no smoking, occasional alcohol use, no illicit drug use. In the ED course the patient was given morphine for the pain. Toe XR reveals no fracture. Patient is diagnosed with a foot contusion. Patient will be discharged home with follow up by PCP. Patient is agreeable to this plan. - Clinical Impression Provider Diagnoses: Foot contusion Discharge - Discharge Plan Condition: Stable Disposition: HOME Prescriptions: DOXYcycline CAP(*) [DOXYcycline 100MG CAP(*)] 100 mg PO BID #10 cap Patient Education Materials: Foot Contusion (ED) [facility] [Primary Care Provider] - 3 Days The documentation as recorded by the Charo arias Thomas accurately reflects the service I personally performed and the decisions made by me, Catarino Perla MD.
[2017-01-09] MEDS ORDERED: Lidocaine 2.5%/Prilocain 2.5%* 5 GM TUBE TOPICAL ONE (04:32)
[2017-01-09] MEDS ORDERED: DOXYcycline CAP(*) 100 MG PO ONE (05:01)
[2017-01-09 05:07] VITALS: BP 137/88
--- NOTE | 2017-01-09 07:56 | RAD ---
INDICATION: Right great toe pain and bleeding after trauma TECHNIQUE: 3 views of the right great toe were obtained. FINDINGS: The visualized bones are normal alignment. Joint spaces appear maintained. No fracture is seen. Seen in the subcutaneous tissue medial to the proximal pole of the right great toe proximal phalanx and at the medial proximal corner of the right great toe distal phalanx are 2 punctate densities that could represent foreign bodies in this clinical setting. IMPRESSION: 1. No definite fracture or dislocation. 2. Potential subcutaneous foreign bodies as described above.
== END 2017-01-09 05:30 | disposition home or self-care (01) ==
LOC: ED 02:56
DX: S90.111A Contusion of right great toe without damage to nail, initial encounter (principal); W18.40XA Slipping, tripping and stumbling without falling, unspecified, initial encounter; Y93.89 Activity, other specified; Y92.89 Other specified places as the place of occurrence of the external cause
CPT/HCPCS: 99282; A9270-GY; J2270

== ENCOUNTER → 2018-01-28 04:23 | Emergency (ER) | payer BC ==
[~2018-01-28 04:23] MED LIST: Ketorolac INJ* 60 MG/2 ML VIAL IM ONE
--- NOTE | 2018-01-28 04:37 | ED ---
HPI Chest Pain - HPI Summary HPI Summary: This patient is a 22 year old M presenting to [facility] with a chief complaint of left side CP for the last 20 minutes. The patient rates the pain 7/10 in severity. Symptoms aggravated by movement. Patient denies n/v, diaphoresis, and SOB. Pt states he was up anyway and that the pain did not wake him from his sleep. - History of Current Complaint Chief Complaint: EDChestWallPain Time Seen by Provider: 01/28/18 04:35 Hx Obtained From: Patient Onset/Duration: Started Minutes Ago, Still Present Time of Onset: 04:16 Timing: Constant Initial Severity: Moderate Current Severity: Moderate Pain Intensity: 7 Pain Scale Used: 0-10 Numeric Chest Pain Location: Left Anterior, Left Lateral - Allergy/Home Medications Allergies/Adverse Reactions: Allergies Allergy/AdvReac Type Severity Reaction Status Date / Time clindamycin Allergy Hives Verified 01/28/18 04:39 Penicillins Allergy Hives Verified 01/28/18 04:39 Sulfa (Sulfonamide Allergy Hives Verified 01/28/18 04:39 Antibiotics) Home Medications: Home Medications Dextroamphetamine/Amphetamine [Amphetamine/Dextroampheta 30 mg-] 30 mg PO DAILY 01/28/18 [History Confirmed 01/28/18] PMH/Surg Hx/FS Hx/Imm Hx Endocrine/Hematology History: Denies: Hx Blood Transfusions, Hx Systemic Lupus Erythematosus Cardiovascular History: Denies: Hx Aneurysm, Hx Hypertension, Hx Supraventricular Ventricular Tachycardia Respiratory History: Denies: Hx Asthma, Hx Chronic Obstructive Pulmonary Disease (COPD), Hx Cystic Fibrosis GI History: Reports: Hx Gastroesophageal Reflux Disease History: Denies: Hx Acute Renal Failure, Hx Benign Prostatic Hyperplasia Psychiatric History: Reports: Hx Attention Deficit Hyperactivity Disorder - Surgical History Surgery Procedure, Year, and Place: None Infectious Disease History: No Infectious Disease History: Denies: Traveled Outside the [place] in Last 30 Days - Family History Known Family History: Positive: Cardiac Disease - Social History Alcohol Use: Occasionally Substance Use Type: Reports: None Smoking Status (MU): Never Smoked Tobacco Review of Systems Negative: Skin Diaphoresis Positive: Chest Pain Negative: Vomiting, Nausea All Other Systems Reviewed And Are Negative: Yes Physical Exam - Summary Physical Exam Summary: VITAL SIGNS: Reviewed. GENERAL: Patient is a well-developed and nourished male who is lying comfortable in the stretcher. Patient is not in any acute respiratory distress. HEAD AND FACE: No signs of trauma. No ecchymosis, hematomas or skull depressions. No sinus tenderness. EYES: PERRLA, EOMI x 2, No injected conjunctiva, no nystagmus. EARS: Hearing grossly intact. Ear canals and tympanic membranes are within normal limits. MOUTH: Oropharynx within normal limits. NECK: Supple, trachea is midline, no adenopathy, no JVD, no carotid bruit, no c- spine tenderness, neck with full ROM. CHEST: Symmetric, no tenderness at palpation LUNGS: Clear to auscultation bilaterally. No wheezing or crackles. CVS: Regular rate and rhythm, S1 and S2 present, no murmurs or gallops appreciated. ABDOMEN: Soft, non-tender. No signs of distention. No rebound no guarding, and no masses palpated. Bowel sounds are normal. EXTREMITIES: FROM in all major joints, no edema, no cyanosis or clubbing. NEURO: Alert and oriented x 3. No acute neurological deficits. Speech is normal and follows commands. SKIN: Dry and warm Triage Information Reviewed: Yes Vital Signs On Initial Exam: Initial Vitals Temp Pulse Resp BP Pulse Ox 97.8 F 88 16 132/75 98 01/28/18 04:31 01/28/18 04:31 01/28/18 04:31 01/28/18 04:31 01/28/18 04:31 Vital Signs Reviewed: Yes Diagnostics - Vital Signs Vital Signs Temp Pulse Resp BP Pulse Ox 01/28/18 04:31 97.8 F 88 16 132/75 98 - Laboratory Result Diagrams: 01/28/18 05:01 01/28/18 05:01 Lab Statement: Any lab studies that have been ordered have been reviewed, and results considered in the medical decision making process. - EKG 0424 Cardiac Rate: NL EKG Rhythm: Sinus Rhythm - at 88 BPM EKG Interpretation: Normal axis. Normal interval. No ischemic changes Chest Pain Course/Dx - Course Assessment/Plan: This patient is a 22 year old M presenting to [facility] with a chief complaint of left side CP for the last 20 minutes. The patient rates the pain 7/10 in severity. Symptoms aggravated by movement. Patient denies n/v, diaphoresis, and SOB. Pt states he was up anyway and that the pain did not wake him from his sleep. An EKG reveals NSR 88 Normal axis. Normal interval. No ischemic changes. Blood work obtained. In the ED course the patient was given toradol which alleviated sx. Patient will be discharged with prescription for motrin and follow up from PCP. The patient is agreeable with this plan. - Diagnoses Provider Diagnoses: Chest wall pain Discharge - Sign-Out/Discharge Documenting (check all that apply): Patient Departure - Discharge Plan Condition: Stable Disposition: HOME Patient Education Materials: Chest Wall Pain (ED) Referrals: [facility] [Z.BUSINESS, APPLICATION, OTHER] - 2 Days Additional Instructions: RETURN TO THE EMERGENCY DEPARTMENT FOR CHANGING OR WORSENING SYMPTOMS. FOLLOW UP WITH PCP IN 1-2 DAYS. - Attestation Statements Document Initiated by Scribe: Yes Documenting Scribe: Sal Tanner Provider For Whom Scribe is Documenting (Include Credential): Benjamin Miranda MD Scribe Attestation: Sal Mcclelland , scribed for Benjamin Miranda MD on 01/28/18 at 0540.
[2018-01-28 05:13] LABS: ABS Basophils 0 10^3/ul (0-0.2); ABS Eosinophils 0.1 10^3/ul (0-0.6); ABS Lymphocytes 2.9 10^3/ul (1.0-4.8); ABS Monocytes 0.9 10^3/ul (0-0.8); ABS Neutrophils 7.6 10^3/ul (1.5-7.7); ABS Nucleated RBC 0 10^3/ul; Eosinophil % 0.5 % (0-6); Hematocrit 42 % (42-52); Hemoglobin 14.3 g/dl (14.0-18.0); Lymphocyte % 25.3 % (25-47); Mean Corpuscular HGB Conc 34 g/dl (31-36); Mean Corpuscular Hemoglobin 30 pg (27-31); Mean Corpuscular Volume 88 fL (80-94); Mean Platelet Volume 9.2 um3 (7.4-10.4); Nucleated Red Blood Cells % 0.1; Platelet Count 220 10^3/ul (150-450); Red Blood Count 4.79 10^6/ul (4.00-5.40); Red Cell Distribution Width 13 % (10.5-15); White Blood Count 11.5 10^3/ul (3.5-10.8)
[2018-01-28 05:31] LABS: EGFR Non-African American 106.5 (>60)
[2018-01-28 06:31] VITALS: BP 112/66
== END | disposition home or self-care (01) ==
LOC: ED 04:23
DX: R07.89 Other chest pain (principal); F90.9 Attention-deficit hyperactivity disorder, unspecified type
CPT/HCPCS: 36415; 80053; 82550; 82553; 84484; 85025; 93005; 96372; 99283; J1885

== ENCOUNTER → 2018-04-28 14:53 | Emergency (ER) | payer BC ==
[2018-04-28 15:04] VITALS: BP 124/83
== END | disposition home or self-care (01) ==
LOC: ED 14:53
DX: R10.9 Unspecified abdominal pain (principal)
CPT/HCPCS: 99281